=== PATIENT | female | born 1970 | race Caucasian/White ===

== ENCOUNTER 2025-03-19 13:21 | Emergency (ER) | payer BC, OTHER ==
[~2025-03-19] VITALS: Ht 162.6 cm; Wt 111.8 kg
[2025-03-19 17:30] VITALS: BP 143/82
== END 2025-03-19 17:30 | disposition home or self-care (01) ==
LOC: ED 13:21
DX: M25.461 Effusion, right knee (principal); E03.9 Hypothyroidism, unspecified
CPT/HCPCS: 73502; 73560; 73700; 99284-25